=== PATIENT | male | born 1990 | race Caucasian/White ===

== ENCOUNTER 2018-12-16 14:51 | Emergency (ER) | payer OTHER ==
[2018-12-16] MEDS ORDERED: Bacitracin/Neomycin/Polymyxin B Oint 0.9 GM U/D Packet TOP ONE (15:46)
[2018-12-16] MEDS ORDERED: Naproxen 500 MG Tab PO ONE (15:49)
--- NOTE | 2018-12-16 15:51 | EDM.PDOC ---
ED HPI GENERAL MEDICAL PROBLEM - General Chief Complaint: Upper Extremity Injury/Pain Stated Complaint: crush injury of thumb Time Seen by Provider: 12/16/18 15:15 Source of Information: Reports: Patient History Limitations: Reports: No Limitations - History of Present Illness INITIAL COMMENTS - FREE TEXT/NARRATIVE: Patient sustained injury between metal plates at work ([employer]) that resulted in compression injury of thumb, 2nd and 3rd digits. Distal half of thumb is most tender. No deformity. Small laceration dorsal thumb. Denies injury to palm of hand and other fingers. No other complaints. No numbness. Last Tetanus 2012. 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 [No Known Home Meds] 12/16/18 [History] Past Medical History Cardiovascular History: Reports: None Respiratory History: Reports: None Gastrointestinal History: Reports: None Genitourinary History: Reports: None Musculoskeletal History: Reports: Fracture, Other (See Below) Other Musculoskeletal History: clavical and wrist fracture Neurological History: Reports: Concussion Psychiatric History: Reports: None Endocrine/Metabolic History: Reports: None Hematologic History: Reports: None Oncologic (Cancer) History: Reports: None Dermatologic History: Reports: None - Infectious Disease History Infectious Disease History: Reports: Chicken Pox - Past Surgical History HEENT Surgical History: Reports: Adenoidectomy, Oral Surgery, Tonsillectomy Cardiovascular Surgical History: Reports: None Respiratory Surgical History: Reports: None GI Surgical History: Reports: None Musculoskeletal Surgical History: Reports: None Social & Family History - Tobacco Use Smoking Status *Q: Never Smoker - Caffeine Use Caffeine Use: Reports: Coffee, Energy Drinks - Recreational Drug Use Recreational Drug Use: No Review of Systems - Review of Systems Review Of Systems: ROS reveals no pertinent complaints other than HPI. ED EXAM, GENERAL - Physical Exam Exam: See Below Exam Limited By: No Limitations General Appearance: Alert, WD/WN, No Apparent Distress Eye Exam: Bilateral Eye: EOMI, PERRL Throat/Mouth: Normal Voice Head: Atraumatic, Normocephalic Neck: Supple Respiratory/Chest: No Respiratory Distress Extremities: Other (Exam of affected left hand shows subungual hematoma under left thumbnail, small laceration dorsal aspect of thumb. No swelling or deformity. Able to flex and extend all fingers of left hand. Reports some stiffness with movement of left thumb. Neuro/vasc intact left hand and fingers. Wrist and metacarpals non-tender. ) Neurological: Alert, Oriented, Normal Cognition, Normal Gait ED TRAUMA EXTREMITY PROCEDURES - Additional/Other Procedure(s) Other (Free Text) Procedure(s): Subungual hematoma left thumb evacuated using cordless cautery to washburn hole in nail. Course - Vital Signs Last Recorded V/S: Last Vital Signs Temp 36.3 C 12/16/18 14:54 Pulse 61 12/16/18 14:54 Resp 16 12/16/18 14:54 BP 109/74 12/16/18 14:54 Pulse Ox 98 12/16/18 14:54 - Orders/Labs/Meds Orders: Active Orders 24 hr Category Date Time Status Hand Comp Min 3V Lt [CR] Stat Exams 12/16/18 15:06 Taken Meds: Medications Discontinued Medications Generic Name Dose Route Start Last Admin Trade Name Freq PRN Reason Stop Dose Admin Naproxen 500 mg 12/16/18 15:49 Naprosyn PO 12/16/18 15:50 ONETIME ONE Neomycin/Polymyxin/Bacitracin 1 each 12/16/18 15:46 Triple Antibiotic Oint TOP 12/16/18 15:47 ONETIME ONE - Radiology Interpretation Free Text/Narrative:: No obvious fractures noted on xray - Re-Assessments/Exams Free Text/Narrative Re-Assessment/Exam: 12/16/18 15:58 Tetanus up to date. Wound care reviewed. Patient feels that he can return to work tomorrow. Dressing applied by nursing staff. Departure - Departure Time of Disposition: 15:49 Disposition: Home, Self-Care 01 Condition: Good Clinical Impression: Crushing injury of finger(s) Qualifiers: Encounter type: initial encounter Qualified Code(s): S67.10XA - Crushing injury of unspecified finger(s), initial encounter Subungual hematoma of left thumb Qualifiers: Encounter type: initial encounter Qualified Code(s): S60.112A - Contusion of left thumb with damage to nail, initial encounter - Discharge Information *PRESCRIPTION DRUG MONITORING PROGRAM REVIEWED*: Not Applicable *COPY OF PRESCRIPTION DRUG MONITORING REPORT IN PATIENT SARKIS: Not Applicable Instructions: Crush Injury of the Hand, Subungual Hematoma, [id number] Referrals: PCP,None [Primary Care Provider] - Forms: ED Department Discharge Additional Instructions: Ice/ibuprofen or tylenol for pain as needed. Follow up if no improvement within 24-48 hours - My Orders Last 24 Hours: My Active Orders 12/16/18 15:06 Hand Comp Min 3V Lt [CR] Stat - Assessment/Plan Last 24 Hours: My Active Orders 12/16/18 15:06 Hand Comp Min 3V Lt [CR] Stat
== END 2018-12-16 15:55 | disposition home or self-care (01) ==
LOC: LL.ED 14:51
DX: S67.02XA Crushing injury of left thumb, initial encounter (principal); S61.112A Laceration without foreign body of left thumb with damage to nail, initial encounter; W23.0XXA Caught, crushed, jammed, or pinched between moving objects, initial encounter; Y99.0 Civilian activity done for income or pay
CPT/HCPCS: 11740; 73130-LT; 99283-25; A9270-GY